=== PATIENT | male | born 1995 | race Caucasian/White ===

== ENCOUNTER 2021-06-02 12:34 | Emergency (ER) | payer BC, SELFPAY ==
--- NOTE | ~2021-06-02 | XR_ITS ---
EXAMINATION: XR finger 3rd RT min 2V INDICATION: Right third finger pain and injury TECHNIQUE: Three views of the right third finger are obtained. COMPARISON: None available FINDINGS: There is an acute, traumatic, comminuted, open fracture of the tuft of the third distal pha lanx. Soft tissue swelling surrounds the fracture. No definite radiopaque foreign body is identified. The joint spaces are maintained. IMPRESSION: 1. Open, comminuted tuft fracture of the third distal phalanx. Reviewed, dictated and finalized at location A.
[2021-06-02 12:35] VITALS: BP 140/88; PULSE 68; RESP 16; TEMP 36.5; O2SAT 99
[2021-06-02] MEDS: LIDOCAINE HCL 1% LOCAL INJ 20 ML VIAL (13:14)
[2021-06-02] MEDS: TETANUS,DIPHTHERIA,AC PERTUSSIS ADULT 0.5 ML (ADACEL) IM (13:36)
[2021-06-02] MEDS: KETOROLAC (*BKC) 60 MG/2 ML VIAL IM (13:38)
[2021-06-02] MEDS: cefTRIAXone 1 GM VIAL IM (13:38)
--- NOTE | 2021-06-02 13:54 | ED.WOUNDLAC ---
HPI - Wound/Laceration General Chief Complaint: Wound/Laceration Stated Complaint: Sliced finger Source: patient Mode of arrival: ambulatory Limitations: no limitations History of Present Illness HPI narrative: this is a 26-year-old male that presents with some injury to his right 3rd finger after he reached into a a running 1 more to pull out some grass and injured his finger causing laceration to underneath the nail bed of his right distal 3rd finger, patient complaining of pain there was initially bleeding. has good range of motion although tender and painful with no numbness or tingling. Onset (ago): hour(s) Extremity Location: Right: hand ( right 3rd finger laceration) Place: home Patient tetanus UTD: No Context: accidental Associated symptoms: pain Related Data Allergies Allergy/AdvReac Type Severity Reaction Status Date / Time No Known Allergies Allergy Verified 06/02/21 12:50 Review of Systems Review of Systems: All systems reviewed & are unremarkable except as noted in HPI and below PMFSH Past Medical History Medical History Patient denies medical problems Exam Const: General: no acute distress Orientation/consciousness: patient oriented x3 HENMT: Head: normal to inspection and contusion Eyes: Conjunctivae: conjunctivae normal Pupils: Equal, round and reactive pupils present Neck: Neck: normal visual inspection and no lymphadenopathy Chest: Chest palpation & inspection: normal inspection of the chest Resp: Effort & Inspection: normal respiratory effort Auscultation: clear to auscultation bilaterally Cardio: Rate: regular rate Rhythm: regular rhythm GI: GI Palp: Yes Soft to palpation Skin: General skin exam: normal color Other: Wound noted to the right 3rd finger under the nail bed with some laceration was bleeding Neuro: General: patient oriented x3, moves all extremities and no meningeal signs Extrem: General: normal to inspection Psych: Mental Status: mental status grossly normal Course Course Emergency Course: patient received IM ceftriaxone/ Won cell and pain medication, x-ray was reviewed with patient which showed a distal right 3rd finger tuft fracture with laceration under the nail bed. Dermabond was used to the finger and patient given an antibiotic. Vital Signs Vital signs: Vital Signs Temperature 36.5 C 06/02/21 12:35 Pulse Rate 68 06/02/21 12:35 Respiratory Rate 16 06/02/21 12:35 Blood Pressure 140/88 06/02/21 12:35 Pulse Oximetry 99 06/02/21 12:35 Temperature 36.5 C 06/02/21 12:35 Pulse Rate 68 06/02/21 12:35 Respiratory Rate 16 06/02/21 12:35 Blood Pressure 140/88 06/02/21 12:35 Pulse Oximetry 99 06/02/21 12:35 Procedures Laceration Laceration 1: Date: 06/02/21 Site: upper extremity ( right 3rd finger) Side (If applicable): right Size (cm): 3 Description: irregular ====== Skin Level ====== Skin layer closed with: dermabond ====== Subcutaneous Layer ====== ====== Muscle Layer ====== ====== Tendon Layer ====== Critical Care Time Critical Care Time Critical Care Time: No Discharge Plan Discharge Clinical Impression: Laceration, Open fracture Patient Disposition: Home, Self-Care Condition: Stable Instructions: Antibiotic Form, Laceration (ED), Finger Fracture (ED), Skin Adhesive Care (ED) Additional Instructions: advise to follow up with primary care physician within 1 week for further evaluation and treatment, continue antibiotics times 10 days and can use Tylenol or Motrin for pain. Prescriptions: New cephalexin [Keflex] 750 mg capsule 750 mg PO Q12H Qty: 20 RF: 0 Follow-up/Referrals: UNKNOWN,DOCTOR [Primary Care Provider] - Time of Disposition: 14:02
[2021-06-02 14:15] VITALS: PULSE 70; RESP 15; TEMP 36.6; O2SAT 100
== END 2021-06-02 14:20 | disposition home or self-care (01) ==
PROVIDERS: Emergency Provider Emergency Medicine
DX: S61.212A Laceration without foreign body of right middle finger without damage to nail, initial encounter (principal); S62.602A Fracture of unspecified phalanx of right middle finger, initial encounter for closed fracture; W45.8XXA Other foreign body or object entering through skin, initial encounter
CPT/HCPCS: 12002; 73140; 90471; 90715; 96372; 99283; 99284; J0696; J1885